=== PATIENT | male | born 1980 | race Caucasian/White ===

== ENCOUNTER → 2019-10-11 | Outpatient (CLI) | payer OTHER ==
--- NOTE | 2019-10-11 08:48 | RAD ---
EXAM DESCRIPTION: Wrist,Left 3 Views CLINICAL HISTORY: 39 years Male, closed fx of distal end of radius COMPARISON: None. FINDINGS: 3 views of the left wrist show a nondisplaced distal left radial fracture with probable intra-articular extension. No distal ulnar fracture. The radiocarpal joint is anatomically aligned, and the carpal bones are intact. IMPRESSION: Nondisplaced distal left radial fracture with probable intra-articular extension. Electronically signed by: Guy Nicholson MD 10/11/2019 8:47 AM CDT
== END ==
LOC: RAD 08:34
PROVIDERS: ATTEND Orthopaedic Surgery
DX: S52.502D Unspecified fracture of the lower end of left radius, subsequent encounter for closed fracture with routine healing (principal)

== ENCOUNTER → 2019-11-08 | Outpatient (CLI) | payer OTHER ==
--- NOTE | 2019-11-08 08:34 | RAD ---
EXAM DESCRIPTION: Wrist,Left 3 Views CLINICAL HISTORY: FRACURE OF DISTAL END OF RADIUS LEFT COMPARISON: October 11, 2019 IMPRESSION: 3 views of the left wrist again demonstrate a comminuted intra-articular nondisplaced fracture of the left distal radius without significant change in fracture fragments. More lucency along the fracture margins is seen. No significant bridging bony union or periosteal reaction is seen at this time. Mild diffuse soft tissue swelling of the wrist is seen. Electronically signed by: Julio Etienne MD 11/08/2019 8:33 AM CDT
== END ==
LOC: RAD 08:14
PROVIDERS: ATTEND Orthopaedic Surgery
DX: S52.572D Other intraarticular fracture of lower end of left radius, subsequent encounter for closed fracture with routine healing (principal)